=== PATIENT | female | born 1970 | race Caucasian/White ===

== ENCOUNTER → 2016-09-30 | Outpatient (CLI) | payer BC ==
--- NOTE | 2016-09-30 09:31 | MM ---
Reason for exam: screening (asymptomatic). Last mammogram was performed 1 year and 8 months ago. History: Family history of breast cancer in grandmother and breast cancer in aunt. Physical Findings: A clinical breast exam by your physician is recommended on an annual basis and results should be correlated with mammographic findings. MG Screening Mammo w CAD Bilateral CC and MLO view(s) were taken. Prior study comparison: February 04, 2015, bilateral MG screening mammo w CAD. January 29, 2011, bilateral digital screening mammo w/CAD. The breast tissue is extremely dense which could obscure a lesion on mammography. Finding: There are typically benign round calcifications in both breasts, greater in the right breast. There is no discrete abnormality. ASSESSMENT: Benign, BI-RAD 2 RECOMMENDATION: Routine screening mammogram of both breasts in 1 year.
== END | disposition home or self-care (01) ==
LOC: RADMAMWWP 07:55
PROVIDERS: ATTEND Obstetrics & Gynecology
DX: Z12.31 Encounter for screening mammogram for malignant neoplasm of breast (principal); Z80.3 Family history of malignant neoplasm of breast

== ENCOUNTER → 2016-11-20 | Outpatient (CLI) | payer BC ==
[2016-11-20 08:52] LABS: Basophils % (A) 0 %; CH 24.1; CHCM 29.7; Eosinophils # (A) 0.4 k/uL (0-0.7); Eosinophils % (A) 8 %; HCT 35.9 % (34.0-46.0); Hypochromasia Marked; Luc # (Auto) 0.12; Luc % (Auto) 2; Lymphocytes # (A) 0.9 k/uL (1.0-4.8); Lymphocytes % (A) 17 %; MCH 24.9 pg (25.0-35.0); MCHC 30.6 g/dL (31.0-37.0); MCV 81.2 fL (80.0-100.0); Mean Platelet Volume 7.4; Monocytes # (A) 0.3 k/uL (0-1.0); Monocytes % (A) 6 %; Neutrophils # (A) 3.4 k/uL (1.3-7.7); Neutrophils % (A) 66 %; RBC 4.42 m/uL (3.80-5.40); RDW 14.4 % (11.5-15.5); WBC 5.2 k/uL (3.8-10.6); WBC (Perox) 5.38
== END | disposition home or self-care (01) ==
LOC: LABWHC1 08:15
PROVIDERS: ATTEND Obstetrics & Gynecology
DX: Z01.812 Encounter for preprocedural laboratory examination (principal); N92.0 Excessive and frequent menstruation with regular cycle
CPT/HCPCS: 36415; 85025

== ENCOUNTER 2016-12-01 07:51 | Day surgery (SDC) | payer BC ==
[2016-11-24 11:10] VITALS: BMI 28.6
--- NOTE | 2016-11-26 14:37 | HP ---
This is a 46-year-old white female, gravid 2, para 2-0-0-2 who presents with a history of very heavy, long, crampy menses with large clots. Menses are occurring every 28 to 30 days but lasting 10 days in duration. Patient has had a tubal ligation. She has had an office endometrial biopsy and presents today for NovaSure ablation with hysteroscopy. She has been well counseled regarding risks, benefits and alternatives of this plane. She denies urinary or bowel symptoms. Review of systems is otherwise completely negative. She does have dysmenorrhea which is moderate, alleviated by Motrin and heat. Past medical history is significant for acid reflux disease and colitis. Past surgical history is C-sections x2, 1993, 1995 and knee surgery x2 in 1987 and 1988. CURRENT MEDICATIONS: 1. Prilosec daily. 2. Probiotic capsules daily. 3. Lialda 1.2 gm tablet with meals. ALLERGIES: None known. FAMILY HISTORY: Significant for breast cancer in maternal and paternal grandmothers. SOCIAL HISTORY: Patient works for the [employer], she has never been a smoker. She denies alcohol or drug use. Reproductive history is significant for sections x2 as noted above. On exam, this is a pleasant white female, 5 foot 5-1/2 inches, 170 pounds, BMI 27.86. Blood pressure 110/70, patient is afebrile and vital signs are otherwise stable. HEENT exam reveals no thyromegaly, no cervical lymphadenopathy. Chest is clear to auscultation in all chi anteriorly and posteriorly. Cardiac exam reveals regular rate and rhythm with no murmur, click or rub. Extremities reveal no edema, there are good peripheral pulses and normal range of motion in all extremities. Breasts are nontender, symmetric, no skin dimpling, nipple discharge, axillary adenopathy or discernible lesions are masses. Abdomen is soft, nontender with no rigidity or guarding, no masses, active bowel sounds. On external genitalia evaluation, they are normal in appearance for age. No inflammatory lesions or discharge. Cervix is multiparous, PAP smear is up to date. Uterus is immobile, small, smooth, nontender, anteverted, anteflexed. Adnexa are negative bilaterally. Rectal exam reveals good sphincter tone, FIT negative stool. IMPRESSION: Continued dysmenorrhea and menorrhagia, previous tubal ligation, patient requesting hysteroscopy and NovaSure endometrial ablation. PLAN: Again, we have reviewed the risks, benefits and alternatives of this procedure to include, but not be exclusive of bleeding, infection, perforation or damage to bowel, bladder, ureters, blood vessels or indeed any pelvic or abdominal organs. Second opinion has been offered and declined. All questions answered. ACOG literature as well as thermostat maker's literature on this procedure have been given to the patient and reviewed thoroughly. I believe she understands all risks including risks of aspiration, nerve damage or even from anesthesia. LUKASZ
[~2016-12-01 07:51] MED LIST: DEXAMETHASONE SOD PHOSPHATE 10 MG/ML 1 ML VIAL IV ONE; HYDROmorphone 1 MG/ML 1 ML SYRINGE IVP PRN; LACTATED RINGERS 1,000 ML IV SCH; MIDAZOLAM 2 MG/2 ML VIAL IV PRN; ONDANSETRON 4 MG/2 ML VIAL IVP ONE; Pre Op ABX Message 1 EACH MISC MISCELLANE ONE; SCOPOLAMINE 1.5MG/72HR PATCH TRANSDERM ONE
[2016-12-01 08:06] VITALS: RESP 16
[2016-12-01] MEDS ORDERED: LIDOCAINE 1% 20 ML VIAL (10MG/ML) FOR IV START INTRADERMA ONE (08:18)
[2016-12-01] MEDS ORDERED: LIDOCAINE 1% INJ 10MG/ML (20 ML MDV) ONE (08:46)
[2016-12-01] MEDS ORDERED: fentaNYL (PF) 50 MCG/ML 2 ML AMP ONE (08:46)
[2016-12-01] MEDS ORDERED: KETOROLAC 30 MG/ML 1 ML VIAL ONE (08:46)
[2016-12-01] MEDS ORDERED: MIDAZOLAM 2 MG/2 ML VIAL ONE (08:46)
[2016-12-01] MEDS ORDERED: PROPOFOL 10 MG/ML 20 ML VIAL IV ONE (08:46)
[2016-12-01] MEDS ORDERED: LACTATED RINGERS 1,000 ML IV ONE (09:11)
--- NOTE | 2016-12-01 09:14 | P.OP ---
Date of Procedure: 12/01/16 Preoperative Diagnosis: Menorrhagia Postoperative Diagnosis: Same Procedure(s) Performed: Hysteroscopy, NovaSure endometrial ablation. Implants: Anesthesia: GETA Surgeon: Christelle Valencia Ui Ux Engineer #1: Stated None Estimated Blood Loss (ml): 5 IV fluids (ml): 800 Urine output (ml): 200 Pathology: none sent Condition: stable Disposition: PACU Indications for Procedure: Operative Findings: Shaggy appearing endometrial cavity without obvious polyps fibroids or defects. Mentation under anesthesia is negative. Description of Procedure: Patient is brought to the operating suite where a general anesthetic is administered without difficulty. She's placed in the dorsal lithotomy position. No antibiotics are deemed necessary. Urine hCG is negative. The appropriate timeout is performed to assure proper patient and procedural identification. Examination under anesthesia is negative with a mobile small anteverted uterus, negative adnexa bilaterally. Perineal body is prepped and draped in usual sterile fashion. The appropriate timeout is performed to assure proper patient and procedural identification. Bladder is drained for 200 mL of clear yellow urine. Anterior lip of the cervix is grasped with a double-tooth tenaculum. Uterus sounds to a depth of 8-1/2 cm in the anteverted position, cervix is approximately 2 cm long. The cervix is then gently and systematically dilated with Hanks dilators. Hysteroscope was placed and fluid is infused. Cavity is distended and inspected. There is a fair amount of shaggy proliferative type appearing tissue, no obvious polyps or fibroids. Hysteroscope was removed. The NovaSure wand is then placed and seated properly. A length of 6.0 cm width of 3.2 cm is calibrated. The machine is properly enabled. For 87 seconds with a power the 106 W this procedure is carried out. When the machine shuts off, the wand is reduced and removed. Hysteroscope was once again placed. Cavity is distended. It appears to be uniformly blanched, consistent with thorough procedure. Hysteroscope was removed. All sponge needle and enhancement counts are correct. Anterior lip of the cervix is clean and dry. There is no active bleeding. Patient is brought back to recovery room in very good condition with stable vital signs during a pulse of 52, blood pressure 118/59, 100% O2 saturation. Toradol is given prior to leaving the operative suite. Patient will follow-up with me in the office in 2 weeks.
[2016-12-01 09:25] VITALS: TEMP 96.8
[2016-12-01 10:20] VITALS: PULSE 50
[2016-12-01 10:35] VITALS: BP 123/62
== END 2016-12-01 10:50 | disposition home or self-care (01) ==
LOC: OR 07:51
PROVIDERS: ATTEND Obstetrics & Gynecology
DX: N92.0 Excessive and frequent menstruation with regular cycle (principal); N94.6 Dysmenorrhea, unspecified; Z98.51 Tubal ligation status; K21.9 Gastro-esophageal reflux disease without esophagitis; K52.9 Noninfective gastroenteritis and colitis, unspecified; Z79.899 Other long term (current) drug therapy
CPT/HCPCS: 81025; 58563; J2250; J1100; J2405; J2001; J3010; J1885; J2704

== ENCOUNTER → 2017-11-03 | Outpatient (CLI) | payer BC ==
--- NOTE | 2017-11-04 10:14 | MM ---
Reason for exam: screening (asymptomatic). Last mammogram was performed 1 year and 1 month ago. History: Family history of breast cancer in grandmother and breast cancer in aunt. Physical Findings: A clinical breast exam by your physician is recommended on an annual basis and results should be correlated with mammographic findings. MG 3D Screening Mammo W/Cad Bilateral CC and MLO view(s) were taken. Prior study comparison: September 30, 2016, bilateral MG screening mammo w CAD. February 04, 2015, bilateral MG screening mammo w CAD. The breast tissue is heterogeneously dense. This may lower the sensitivity of mammography. No suspicious abnormality on the left breast. There is a new 4mm asymmetry with associated calcifications seen only on the MLO view at posterior depth 7.5-8cm from nipple just anterior to the pectoralis muscle. ASSESSMENT: Incomplete: need additional imaging evaluation, BI-RAD 0 RECOMMENDATION: Special view mammogram and ultrasound of the right breast. (superior breast ultrasound) [facility] will attempt to contact patient to return for supplemental views and ultrasound.
== END | disposition home or self-care (01) ==
LOC: RADMAMWWP 07:08
PROVIDERS: ATTEND Obstetrics & Gynecology
DX: Z12.31 Encounter for screening mammogram for malignant neoplasm of breast (principal); Z80.3 Family history of malignant neoplasm of breast
CPT/HCPCS: 77063; 77067

== ENCOUNTER → 2017-11-16 | Outpatient (CLI) | payer BC ==
--- NOTE | 2017-11-17 15:05 | MM ---
Reason for exam: additional evaluation requested from abnormal screening. Last mammogram was performed less than 1 month ago. History: Family history of breast cancer in maternal grandmother at age 72 and breast cancer in maternal aunt at age 62. Took hormonal contraceptives for 9 years beginning at age 13. Physical Findings: Nurse did not find any significant physical abnormalities on exam. MG 3D Work Up W/Cad RT CC with magnification, MLO with magnification, ML with magnification, and ML view(s) were taken of the right breast. Prior study comparison: November 03, 2017, bilateral MG 3d screening mammo w/cad. September 30, 2016, bilateral MG screening mammo w CAD. The breast tissue is heterogeneously dense. This may lower the sensitivity of mammography. The far posterior and superior asymmetric density disperses on additional views. In addition the calcifications here layer suggesting benign milk of calcium. These results were verbally communicated with the patient and result sheet given to the patient on 11/16/17. ASSESSMENT: Incomplete: need additional imaging evaluation, BI-RAD 0 RECOMMENDATION: Ultrasound of the right breast. (superior half)
--- NOTE | 2017-11-17 15:07 | USB ---
Reason for exam: additional evaluation requested from abnormal screening. History: Family history of breast cancer in maternal grandmother at age 72 and breast cancer in maternal aunt at age 62. Took hormonal contraceptives for 9 years beginning at age 13. US Breast Workup Limited RT Right limited breast ultrasound including focal area of concern, retroareolar and axilla demonstrates a 0.4 x 0.4 x 0.2cm oval, cystic lesion at 12 o'clock. This may correspond to the mammographic finding or may be incidental. 6 month follow up mammogram recommended. These results were verbally communicated with the patient and result sheet given to the patient on 11/16/17. ASSESSMENT: Probably benign, BI-RAD 3 RECOMMENDATION: Follow-up diagnostic mammogram of the right breast in 6 months.
== END | disposition home or self-care (01) ==
LOC: RADMAMWWP 07:18
PROVIDERS: ATTEND Obstetrics & Gynecology
DX: R92.8 Other abnormal and inconclusive findings on diagnostic imaging of breast (principal)
CPT/HCPCS: 77061; 77065

== ENCOUNTER → 2018-06-02 | Outpatient (CLI) | payer BC ==
--- NOTE | 2018-06-02 10:14 | MM ---
Reason for exam: follow-up at short interval from prior study. Last mammogram was performed 6 months ago. History: Family history of breast cancer in maternal grandmother at age 72 and breast cancer in maternal aunt at age 62. Took hormonal contraceptives for 9 years beginning at age 13. Physical Findings: Nurse did not find any significant physical abnormalities on exam. MG 3D Diag Mammo W/Cad RT CC and MLO view(s) were taken of the right breast. Prior study comparison: November 16, 2017, right breast MG 3d work up w/cad RT. November 03, 2017, bilateral MG 3d screening mammo w/cad. The breast tissue is heterogeneously dense. This may lower the sensitivity of mammography. There is no discrete abnormality. No significant new findings when compared with previous films. These results were verbally communicated with the patient and result sheet given to the patient on 06/02/18. ASSESSMENT: Negative, BI-RAD 1 RECOMMENDATION: Return to routine screening mammogram schedule for both breasts. Back on schedule.
== END ==
LOC: RADMAMWWP 08:06
PROVIDERS: ATTEND Obstetrics & Gynecology
DX: R92.8 Other abnormal and inconclusive findings on diagnostic imaging of breast (principal)
CPT/HCPCS: 77061; 77065

== ENCOUNTER 2018-09-19 12:38 | Emergency (ER) | payer BC, OTHER ==
[2018-09-19 13:11] VITALS: BP 136/67; PULSE 77; RESP 16; TEMP 98.1
--- NOTE | 2018-09-19 13:48 | ED ---
Upper Extremity HPI - General Chief Complaint: Extremity Injury, Upper Stated Complaint: ihs fall, rt hand injury Time Seen by Provider: 09/19/18 13:21 Source: patient, RN notes reviewed, old records reviewed Mode of arrival: ambulatory Limitations: no limitations - History of Present Illness Initial Comments: Patient is a 40-year-old female presents emergency department today for complaints of right hand injury after tripping and falling. Patient reports she has some tenderness over the proximal thumb and wrist. Patient states that she tripped over a cord while at work, and caught her weight on her arm. Patient denies any other symptoms including peripheral paresthesias. Patient states that she's had no previous hand or wrist injuries. She is right-handed. - Related Data Home Medications Medication Instructions Recorded Confirmed L.acidoph,Paracasei, B.lactis 1 each PO DAILY PRN 11/24/16 11/24/16 [Probiotic] Mesalamine [Lialda] 1.2 gm PO DAILY 11/24/16 11/24/16 Omeprazole 20 mg PO DAILY 11/24/16 11/24/16 Allergies Allergy/AdvReac Type Severity Reaction Status Date / Time No Known Allergies Allergy Verified 09/19/18 13:08 Review of Systems ROS Statement: Those systems with pertinent positive or pertinent negative responses have been documented in the HPI. ROS Other: All systems not noted in ROS Statement are negative. Past Medical History Additional Past Medical History / Comment(s): colitis History of Any Multi-Drug Resistant Organisms: None Reported Past Surgical History: Section Past Psychological History: No Psychological Hx Reported Smoking Status: Never smoker Past Alcohol Use History: None Reported Past Drug Use History: None Reported General Exam - General Exam Comments Initial Comments: This is a 48-year-old female. Alert and oriented 3. No significant distress. Limitations: no limitations Head exam: Present: atraumatic, normocephalic, normal inspection Eye exam: Present: normal appearance, PERRL, EOMI. Absent: scleral icterus, conjunctival injection, periorbital swelling ENT exam: Present: normal exam, mucous membranes moist Neck exam: Present: normal inspection. Absent: tenderness, meningismus, lymphadenopathy Respiratory exam: Present: normal lung sounds bilaterally. Absent: respiratory distress, wheezes, rales, rhonchi, stridor Cardiovascular Exam: Present: regular rate, normal rhythm, normal heart sounds. Absent: systolic murmur, diastolic murmur, rubs, gallop, clicks GI/Abdominal exam: Present: soft, normal bowel sounds. Absent: distended, tenderness, guarding, rebound, rigid Extremities exam: Present: normal inspection, full ROM, normal capillary refill. Absent: tenderness, pedal edema, joint swelling, calf tenderness Right Elbow exam: Present: normal inspection, full ROM Forearm Wrist exam: Present: normal inspection, full ROM, tenderness (Patient has tenderness over the right snuffbox.), swelling, tenderness over anatomical snuff box, pain with axial thumb loading Hand Wrist exam: Present: normal inspection, full ROM, tenderness (Lower proximal thumb.) Neuro motor exam: Present: wrist extension intact, thumb opposition intact, thumb IP flexion intact, thumb adduction intact, fingers 2-5 abduction intact Vascular: Present: normal capillary refill Back exam: Present: normal inspection Neurological exam: Present: alert, oriented X3, CN II-XII intact Psychiatric exam: Present: normal affect, normal mood Skin exam: Present: warm, dry, intact, normal color. Absent: rash Course Vital Signs 09/19/18 13:08 Temperature 98.1 F Pulse Rate 77 Respiratory 16 Rate Blood Pressure 136/67 O2 Sat by Pulse 97 Oximetry Procedures - Orthopedic Splinting/Casting Injury #1 Side: right Upper Extremity Injury Location: wrist Upper Extremity Immobilizer: thumb spica, Danny wrap, synthetic pre-padded splint Medical Decision Making - Medical Decision Making Patient's 40-year-old female presents emergency room today with right wrist and hand pain. Patient reports it started she tripped and fell at work and she fell on outstretched hand. Patient has some snuffbox tenderness, was placed in a thumb spica splint. I discussed Patient is follow-up with orthopedics for repeat x-rays and prednisone days as symptoms continue to persist. Some minor swelling noted. The Patient is neurovascularly intact. Discussed appropriate follow-up and Motrin Tylenol for pain. - Radiology Data Radiology results: report reviewed No fracture dislocation of the right hand or wrist. Disposition Clinical Impression: Right wrist sprain Disposition: HOME SELF-CARE Condition: Good Instructions (If sedation given, give patient instructions): Wrist Injury (ED) Additional Instructions: Recommended following up with orthopedics in 7-10 days for repeat x-rays. Remain in splint until that time. Patient should've close follow-up, and take Motrin Tylenol for pain. Ice the areas well and keep the wrist and hand up and elevated. Is patient prescribed a controlled substance at d/c from ED?: No Referrals: Gaston Winn MD [Primary Care Provider] - 1-2 days Antonio Isbell DO [Doctor of Osteopathic Medicine] - 1-2 days Time of Disposition: 14:12
--- NOTE | 2018-09-19 14:09 | XR ---
Right wrist and right hand HISTORY: Trauma and pain 3 views of the right hand and 4 views of the right wrist submitted Bone mineralization, joint spaces and alignment are maintained. Punctate focus of increased density p resent anterior to the distal aspect of the middle phalanx of the second digit of the right hand is a questionable clinical significance. Similar focus at the interphalangeal joint of the first digit is likely due to underlying arthropathy. IMPRESSION: No fracture or dislocation of the right hand or wrist.
== END 2018-09-19 14:37 | disposition home or self-care (01) ==
LOC: EC 12:38
DX: S63.501A Unspecified sprain of right wrist, initial encounter (principal); Z79.899 Other long term (current) drug therapy; W01.0XXA Fall on same level from slipping, tripping and stumbling without subsequent striking against object, initial encounter; Y92.69 Other specified industrial and construction area as the place of occurrence of the external cause; Y99.0 Civilian activity done for income or pay
CPT/HCPCS: 29125; 99284

== ENCOUNTER → 2019-01-11 | Outpatient (CLI) | payer BC ==
--- NOTE | 2019-01-11 08:57 | MM ---
Reason for exam: additional evaluation requested from prior study. Last mammogram was performed 7 months ago. History: Family history of breast cancer in maternal grandmother at age 72, breast cancer in maternal aunt at age 62, and breast cancer in cousin at age 48. Took hormonal contraceptives for 9 years beginning at age 13. Physical Findings: Nurse did not find any significant physical abnormalities on exam. MG 3D Diag Mammo W/Cad BUDDY Bilateral CC and MLO view(s) were taken. Prior study comparison: June 02, 2018, right breast MG 3d diag mammo w/cad RT. November 16, 2017, right breast MG 3d work up w/cad RT. November 03, 2017, bilateral MG 3d screening mammo w/cad. September 30, 2016, bilateral MG screening mammo w CAD. February 04, 2015, bilateral MG screening mammo w CAD. The breast tissue is heterogeneously dense. This may lower the sensitivity of mammography. No significant new findings when compared with previous films. These results were verbally communicated with the patient and result sheet given to the patient on 01/11/19. ASSESSMENT: Benign, BI-RAD 2 RECOMMENDATION: Routine screening mammogram of both breasts in 1 year.
== END | disposition home or self-care (01) ==
LOC: RADMAMWWP 08:07
PROVIDERS: ATTEND Obstetrics & Gynecology
DX: R92.8 Other abnormal and inconclusive findings on diagnostic imaging of breast (principal)
CPT/HCPCS: 77062; 77066

== ENCOUNTER → 2020-05-28 | Outpatient (CLI) | payer BC, OTHER ==
--- NOTE | 2020-05-28 13:17 | MM ---
Reason for exam: screening (asymptomatic). Last mammogram was performed 1 year and 4 months ago. History: Patient is postmenopausal. Family history of breast cancer in maternal grandmother at age 72, breast cancer in maternal aunt at age 62, and breast cancer in cousin at age 48. Took hormonal contraceptives for 9 years beginning at age 13. Physical Findings: A clinical breast exam by your physician is recommended on an annual basis and results should be correlated with mammographic findings. MG 3D Screening Mammo W/Cad Bilateral CC and MLO view(s) were taken. Prior study comparison: January 11, 2019, bilateral MG 3d diag mammo w/cad BUDDY. June 02, 2018, right breast MG 3d diag mammo w/cad RT. November 03, 2017, bilateral MG 3d screening mammo w/cad. September 30, 2016, bilateral MG screening mammo w CAD. The breast tissue is heterogeneously dense. This may lower the sensitivity of mammography. No significant changes when compared with prior studies. ASSESSMENT: Benign, BI-RAD 2 RECOMMENDATION: Routine screening mammogram of both breasts in 1 year.
== END | disposition home or self-care (01) ==
LOC: RADMAMWWP 07:13
PROVIDERS: ATTEND Obstetrics & Gynecology
DX: Z08 Encounter for follow-up examination after completed treatment for malignant neoplasm (principal); Z80.3 Family history of malignant neoplasm of breast
CPT/HCPCS: 77063; 77067

== ENCOUNTER → 2021-07-09 | Outpatient (CLI) | payer BC, OTHER ==
--- NOTE | 2021-07-11 11:56 | MM ---
Reason for exam: screening (asymptomatic). Last mammogram was performed 1 year and 1 month ago. History: Patient is postmenopausal. Family history of breast cancer in maternal grandmother at age 72, breast cancer in maternal aunt at age 62, and breast cancer in cousin at age 48. Took hormonal contraceptives for 9 years beginning at age 13. Physical Findings: A clinical breast exam by your physician is recommended on an annual basis and results should be correlated with mammographic findings. MG 3D Screening Mammo W/Cad Bilateral CC and MLO view(s) were taken. Prior study comparison: May 28, 2020, bilateral MG 3d screening mammo w/cad. January 11, 2019, bilateral MG 3d diag mammo w/cad BUDDY. The breast tissue is heterogeneously dense. This may lower the sensitivity of mammography. No significant changes when compared with prior studies. ASSESSMENT: Benign, BI-RAD 2 RECOMMENDATION: Routine screening mammogram of both breasts in 1 year.
== END | disposition home or self-care (01) ==
LOC: RADMAMWWP 08:19
PROVIDERS: ATTEND Obstetrics & Gynecology
DX: Z12.31 Encounter for screening mammogram for malignant neoplasm of breast (principal); Z80.3 Family history of malignant neoplasm of breast; Z78.0 Asymptomatic menopausal state
CPT/HCPCS: 77063; 77067

== ENCOUNTER → 2021-07-15 | Outpatient (CLI) | payer BC, OTHER ==
--- NOTE | 2021-07-15 15:55 | US ---
EXAMINATION TYPE: US kidneys/renal and bladder DATE OF EXAM: 07/15/2021 COMPARISON: US 2016 CLINICAL HISTORY: N28.9. Abn labs EXAM MEASUREMENTS: Right Kidney: 10.4 x 3.6 x 5.5 cm Left Kidney: 10.5 x 4.6 x 5.1 cm Right Kidney: No hydronephrosis or masses seen Left Kidney: No hydronephrosis or masses seen Bladder: wnl, sonolucent Bilateral Jets seen: Yes IMPRESSION: 1. Normal renal ultrasound
== END | disposition home or self-care (01) ==
LOC: RADUSWWP 14:47
PROVIDERS: ATTEND Family Medicine
DX: N28.9 Disorder of kidney and ureter, unspecified (principal); R79.9 Abnormal finding of blood chemistry, unspecified
CPT/HCPCS: 76770

== ENCOUNTER → 2022-01-06 | Outpatient (CLI) | payer BC, OTHER ==
[2022-01-06 10:25] LABS: HCT 37.8 % (37.2-46.3); HGB 12.1 g/dL (12.0-15.0); MCH 28.3 pg (27.0-32.0); MCV 88.5 fL (80.0-97.0); Mean Platelet Volume 9.5 fL (9.5-12.2); NRBC Per 100 WBC 0 /100 WBCS (0.0-0.0); Platelet Count 210 X 10*3/uL (140-440); RBC 4.27 X 10*6/uL (4.10-5.20); RDW 13.1 % (11.5-14.5); WBC 4.64 X 10*3/uL (4.50-10.00)
[2022-01-06 10:41] LABS: % Iron Saturation 15.73 (12.00-45.00); African American GFR (CKD) 67.3 (60.0-200.0); Albumin 4.3 g/dL (3.8-4.9); Albumin/Globulin Ratio 1.79 (1.60-3.17); Anion Gap 9.9 mmol/L (10.00-18.00); BUN/Creat Ratio 21.09 Ratio (12.00-20.00); Blood Urea Nitrogen 23.2 mg/dL (9.0-27.0); Calcium 8.9 mg/dL (8.7-10.3); Carbon Dioxide 26.1 mmol/L (20.0-27.5); Globulin 2.4 g/dL (1.6-3.3); Non-African American GFR(CKD) 58.1 (60.0-200.0); Phosphorus 3.8 mg/dL (2.4-5.1); Potassium 4.3 mmol/L (3.5-5.5); Total Bilirubin 0.3 mg/dL (0.30-1.20); Total Protein 6.7 g/dL (6.2-8.2); Uric Acid 5.9 mg/dL (2.9-7.7)
[2022-01-06 10:59] LABS: Ferritin 63.7 ng/mL (10.0-291.0)
[2022-01-06 18:08] LABS: Appearance,Urine Clear (Clear); Bilirubin,Urine Negative (Negative); Blood,Urine Negative (Negative); Color,Urine Yellow (Yellow); Ketones,Urine Negative (Negative); Nitrite,Urine Negative (Negative); PH, Urine 5.5 (5.0-8.0); Specific Gravity,Urine 1.017 (1.001-1.030); Urobilinogen,Urine 0.2 (0.2,1.0)
[2022-01-06 18:12] LABS: Bacteria,Urine None Seen /HPF (None Seen)
[2022-01-06 21:38] LABS: Microalbumin Creatinine Ratio <30 mg/g Creat (0-30); Urine Creatinine 78.7 mg/dL (28.0-217.0)
[2022-01-08 09:48] LABS: Free Kappa Lt Chain Qnt, Serum 1.98 mg/dL (0.33-1.94); Free Lambda Lt Chain Qnt, Seru 1.17 mg/dL (0.57-2.63)
== END | disposition home or self-care (01) ==
LOC: LABWHC1 07:15
PROVIDERS: ATTEND Internal Medicine
DX: E55.9 Vitamin D deficiency, unspecified (principal); N18.31 Chronic kidney disease, stage 3a; N39.0 Urinary tract infection, site not specified; N25.81 Secondary hyperparathyroidism of renal origin; M10.9 Gout, unspecified; D63.1 Anemia in chronic kidney disease; R80.9 Proteinuria, unspecified
CPT/HCPCS: 36415; 80053; 81001; 82043; 82306; 82570; 82728; 83540; 83550; 83735; 83883; 83970; 84100; 84443; 84550; 85027; 86334

== ENCOUNTER → 2022-08-19 | Outpatient (CLI) | payer BC, OTHER ==
--- NOTE | 2022-08-19 21:19 | MM ---
Reason for Exam: Screening (asymptomatic). Last mammogram was performed 1 year(s) and 2 month(s) ago. Patient History: Menarche at age 12. First Full-Term at age 23. Postmenopausal. Hormonal Contraceptives for 9 years from age 13 until age 22. Maternal grandmother had breast cancer, age 72. Maternal cousin had breast cancer, age 48. Maternal aunt had breast cancer, age 62. Risk Values: Suzanne 5 year model risk: 0.9%. NCI Lifetime model risk: 7.8%. Prior Study Comparison: 01/11/2019 Bilateral Diagnostic Mammogram, [facility]. 05/28/2020 Bilateral Screening Mammogram, [facility]. 07/09/2021 Bilateral Screening Mammogram, [facility]. Tissue Density: The breast tissue is heterogeneously dense. This may lower the sensitivity of mammography. Findings: Analyzed By CAD. Focal asymmetry at posterior depth right breast either 11:00 or 7:00 appears more defined and incompletely disperses on 3-D images. Further evaluation is recommended. Otherwise, there is no suspicious group of microcalcifications or new suspicious mass in either breast. The asymmetric density superior left MLO view middle to posterior depth is unchanged. Overall Assessment: Incomplete: need additional imaging evaluation, BI-RAD 0 Management: Special View Mammogram of the right breast. Diagnostic Breast Ultrasound of the right breast. Ultrasound to include the lateral half of the breast. [facility] will attempt to contact patient to return for supplemental views and ultrasound if indicated. Electronically signed and approved by: Christelle Culver M.D. Radiologist
== END | disposition home or self-care (01) ==
LOC: RADMAMWWP 06:54
PROVIDERS: ATTEND Obstetrics & Gynecology
DX: Z12.31 Encounter for screening mammogram for malignant neoplasm of breast (principal); Z78.0 Asymptomatic menopausal state; Z80.3 Family history of malignant neoplasm of breast
CPT/HCPCS: 77063; 77067

== ENCOUNTER → 2022-08-26 | Outpatient (CLI) | payer BC, OTHER ==
--- NOTE | 2022-08-26 08:38 | MM ---
Reason for Exam: Additional evaluation requested from abnormal screening. Last screening mammogram was performed less than 1 month ago. Patient History: Menarche at age 12. First Full-Term at age 23. Postmenopausal. Hormonal Contraceptives for 9 years from age 13 until age 22. Maternal grandmother had breast cancer, age 72. Maternal cousin had breast cancer, age 48. Maternal aunt had breast cancer, age 62. Risk Values: Suzanne 5 year model risk: 0.9%. NCI Lifetime model risk: 7.8%. Prior Study Comparison: 11/03/2017 Bilateral Screening Mammogram, [facility]. 05/28/2020 Bilateral Screening Mammogram, [facility]. 07/09/2021 Bilateral Screening Mammogram, [facility]. 08/19/2022 Bilateral MG 3D screening mammo w/cad, [facility]. Tissue Density: Right: The breast tissue is heterogeneously dense. This may lower the sensitivity of mammography. Findings: Analyzed By CAD. Focal asymmetry within the right breast does not persist with compression. No new suspicious mass or group of microcalcifications within the right breast. Overall Assessment: Negative, BI-RAD 1 Management: Screening Mammogram of both breasts in 1 year. A clinical breast exam by your physician is recommended on an annual basis and results should be correlated with mammographic findings. This exam should not preclude additional follow-up of suspicious palpable abnormalities. Results were given to the patient verbally at the time of exam. Electronically signed and approved by: Lyndon Becerra D.O.
== END | disposition home or self-care (01) ==
LOC: RADMAMWWP 08:08
PROVIDERS: ATTEND Obstetrics & Gynecology
DX: R92.8 Other abnormal and inconclusive findings on diagnostic imaging of breast (principal); Z78.0 Asymptomatic menopausal state; Z80.3 Family history of malignant neoplasm of breast
CPT/HCPCS: 77061; 77065

== ENCOUNTER → 2022-09-03 | Outpatient (CLI) | payer BC, OTHER ==
--- NOTE | 2022-09-04 08:48 | MR ---
EXAMINATION TYPE: MR knee LT wo con DATE OF EXAM: 09/03/2022 COMPARISON: Outside left knee x-ray August 25, 2022 HISTORY: Left knee pain TECHNIQUE: Multiplanar, multisequence images of the knee is performed without IV contrast. FINDINGS: MEDIAL MENISCUS: Anterior and posterior horns are intact without tear. LATERAL MENISCUS: Anterior and posterior horns are intact without tear. CRUCIATE LIGAMENTS: The anterior and posterior cruciate ligaments are intact and unremarkable. COLLATERAL LIGAMENTS: The medial collateral ligament and lateral collateral ligament complex are inta ct and unremarkable. EXTENSOR MECHANISM: Visualized quadriceps and patellar tendons are intact. EFFUSION: Small to moderate size suprapatellar joint effusion. POPLITEAL CYST: No popliteal/polanco cyst. TRICOMPARTMENT SPACES: Mild tricompartment joint space loss. No significant spurring. CARTILAGE: Tricompartmental articular cartilage fairly well-preserved. BONE MARROW SIGNAL: No focal abnormal marrow signal is appreciated. OTHER: No additional significant abnormality is appreciated. IMPRESSION: No meniscal or ligamentous tear is seen.
== END | disposition home or self-care (01) ==
LOC: RADMRIMAIN 21:00
PROVIDERS: ATTEND Orthopaedic Surgery
DX: M25.562 Pain in left knee (principal)

== ENCOUNTER → 2022-09-19 | Outpatient (CLI) | payer BC, OTHER ==
[2022-09-19 10:00] LABS: Basophils % (A) 0 %; Eosinophils # (A) 0.3 k/uL (0-0.7); Eosinophils % (A) 5 %; HCT 39.5 % (34.0-46.0); HGB 12.4 gm/dL (11.4-16.0); Lymphocytes % (A) 20 %; MCH 27.7 pg (25.0-35.0); MCHC 31.3 g/dL (31.0-37.0); MCV 88.3 fL (80.0-100.0); Mean Platelet Volume 7.6; Monocytes # (A) 0.3 k/uL (0-1.0); Monocytes % (A) 7 %; Neutrophils # (A) 3.1 k/uL (1.3-7.7); Neutrophils % (A) 66 %; Platelet Count 218 k/uL (150-450); RBC 4.48 m/uL (3.80-5.40); RDW 13.4 % (11.5-15.5); WBC 4.8 k/uL (3.8-10.6)
[2022-09-20 10:51] LABS: Albumin 4.5 d/dL; Albumin/Globulin Ratio 1.88 Ratio; Anion Gap 9.6 mmol/L; BUN/Creat Ratio 15.64 Ratio; Blood Urea Nitrogen 17.2 mg/dL; Calcium 9.5 mg/dL; Carbon Dioxide 28.4 mmol/L; Globulin 2.4 d/dL; Magnesium 2.2 mg/dL; Phosphorus 3.5 mg/dL; Potassium 4.1 mmol/L; Total Bilirubin 0.4 mg/dL; Total Protein 6.9 d/dL; Uric Acid 6.6 mg/dL
[2022-09-20 11:13] LABS: % Iron Saturation 16.44
[2022-09-21 10:15] LABS: African American GFR (CKD) 66.7; Non-African American GFR(CKD) 57.9
== END | disposition home or self-care (01) ==
LOC: LABWHC1 08:29
PROVIDERS: ATTEND Nurse Practitioner Acute Care
DX: N18.31 Chronic kidney disease, stage 3a (principal)
CPT/HCPCS: 36415; 80053; 82043; 82306; 82570; 82728; 83540; 83550; 83735; 83970; 84100; 84550; 85025

== ENCOUNTER → 2023-08-31 | Outpatient (CLI) | payer BC ==
--- NOTE | 2023-09-01 08:26 | MM ---
Reason for Exam: Screening (asymptomatic). Last screening mammogram was performed 12 month(s) ago. Patient History: Menarche at age 12. First Full-Term at age 23. Postmenopausal. Hormonal Contraceptives for 9 years from age 13 until age 22. Maternal grandmother had breast cancer, age 72. Maternal cousin had breast cancer, age 48. Maternal aunt had breast cancer, age 62. Risk Values: Suzanne 5 year model risk: 1.0%. NCI Lifetime model risk: 7.7%. Prior Study Comparison: 07/09/2021 Bilateral Screening Mammogram, [facility]. 08/19/2022 Bilateral MG 3D screening mammo w/cad, [facility]. 08/26/2022 Right MG 3D work up w/cad RT, [facility]. Tissue Density: The breasts are heterogeneously dense, which may obscure small masses. Findings: Analyzed By CAD. Right breast: There is no suspicious group of microcalcifications or new suspicious mass. Left breast: There is no suspicious group of microcalcifications or new suspicious mass. Overall Assessment: Negative, BI-RAD 1 Management: Screening Mammogram of both breasts in [address] [facility] will attempt to contact patient to return for supplemental views and ultrasound if indicated. Patient should continue monthly self-breast exams. A clinical breast exam by your physician is recommended on an annual basis. This exam should not preclude additional follow-up of suspicious palpable abnormalities. Note on Suzanne scores and lifetime risk: 1. A Suzanne score greater than 3% is considered moderate risk. If this is the case, consider specialist referral to assess eligibility for a risk reducing agent. 2. If overall lifetime risk for the development of breast cancer is 20% or higher, the patient may qualify for future screening with alternating mammogram and breast MRI. Electronically signed and approved by: Justyn Hardy DO
== END | disposition home or self-care (01) ==
LOC: RADMAMWWP 08:44
PROVIDERS: ATTEND Obstetrics & Gynecology Obstetrics
DX: Z12.31 Encounter for screening mammogram for malignant neoplasm of breast (principal); Z78.0 Asymptomatic menopausal state; Z80.3 Family history of malignant neoplasm of breast
CPT/HCPCS: 77063; 77067

== ENCOUNTER → 2024-04-10 | Outpatient (CLI) | payer BC ==
--- NOTE | 2024-04-10 15:27 | MR ---
EXAMINATION TYPE: MR shoulder LT wo con DATE OF EXAM: 04/10/2024 12:11 PM COMPARISON: Radiograph 04/04/2024 CLINICAL INDICATION: Female, 53 years old with history of M25.512 LEFT SHOULDER PAIN, left shoulder p ain and limited range of motion for 4 weeks TECHNIQUE: Multiplanar, multisequence imaging of the left shoulder is performed without contrast. FINDINGS: There is some intermediate signal at the junction of the intracapsular and extracapsular portion of t he long head biceps tendon. There is also mild to moderate fluid along the bicipital groove. The subscapularis tendon appears intact. Moderate degenerative change of the acromioclavicular joint with joint space narrowing, inferior spur ring, and capsular hypertrophy. Inferior spurring minimally abuts the underlying myotendinous junctio n of the supraspinatus. There is trace underlying effusion in the subacromial/subdeltoid bursa and suggestion of bursal sided fraying throughout the supraspinatus tendon. A partial-thickness bursal sided tear of the anterior t o mid supraspinous tendon is difficult to exclude measuring 1.2 cm AP and 1.0 cm long. Assessment is limited due to the presence of edema related to foci of calcification within the supraspinatus tendon . No rotator cuff muscle atrophy. The glenohumeral joint appears intact without significant effusion. No paralabral cyst or discrete la bral tear given on arthrographic technique. No Hill-Sachs deformity or os acromiale. Patchy red marrow hyperplasia which can be seen with anemia, obesity, smoking, and chronic disease. IMPRESSION: 1. Foci of calcification within the supraspinatus tendon. Associated soft tissue edema and trace burs al effusion. Findings compatible with calcific tendinitis. 2. Some limitation in assessment of the supraspinatus tendon due to the presence of the soft tissue e chey and calcification. There appears to be bursal sided fraying and a possible partial-thickness bur duarte sided tear measuring 1.2 x 1.0 cm of the anterior to mid fibers. Consider reassessment after reso lution of the calcific tendinitis. 3. Moderate AC joint OA and mild to moderate long head biceps tenosynovitis. [facility], , 04/10/2024 3:25 PM
== END | disposition home or self-care (01) ==
LOC: RADMRIMAIN 10:56
PROVIDERS: ATTEND Orthopaedic Surgery
DX: M19.012 Primary osteoarthritis, left shoulder (principal); M65.912 Unspecified synovitis and tenosynovitis, left shoulder; M25.412 Effusion, left shoulder

== ENCOUNTER → 2024-05-01 | Outpatient (CLI) | payer BC ==
[2024-05-01 16:49] LABS: Basophils # (A) 0.01 X 10*3/uL (0.00-0.10); Basophils % (A) 0.3 %; Eosinophils # (A) 0.23 X 10*3/uL (0.04-0.35); Eosinophils % (A) 7.6 %; HCT 42.8 % (37.2-46.3); HGB 13.4 g/dL (12.0-15.0); Lymphocytes # (A) 0.32 X 10*3/uL (0.90-5.00); Lymphocytes % (A) 10.5 %; MCH 27.8 pg (27.0-32.0); MCHC 31.3 g/dL (32.0-37.0); MCV 88.8 FL (80.0-97.0); Mean Platelet Volume 9.9 FL (9.5-12.2); Monocytes # (A) 0.27 X 10*3/uL (0.20-1.00); Monocytes % (A) 8.9 %; NRBC Per 100 WBC 0 X 10*3/uL (0.00-0.01); Neutrophils % (A) 72.4 %; Platelet Count 214 X 10*3/uL (140-440); RBC 4.82 X 10*6/uL (4.10-5.20); RDW 12.9 % (11.5-14.5); WBC 3.04 X 10*3/uL (4.50-10.00)
[2024-05-01 18:08] LABS: ALT 27 U/L (8-44); AST 18 U/L (13-35); Albumin 4.5 g/dL (3.8-4.9); Albumin/Globulin Ratio 2.05 Ratio (1.60-3.17); Alkaline Phosphatase 61 U/L (41-126); BUN/Creat Ratio 17.73 Ratio (12.00-20.00); Blood Urea Nitrogen 19.5 mg/dL (9.0-27.0); Calcium 9.2 mg/dL (8.7-10.3); Carbon Dioxide 27.7 mmol/L (21.6-31.8); Chloride 106 mmol/L (96-109); Globulin 2.2 g/dL (1.6-3.3); Glucose 93 mg/dL (70-110); Potassium 4.1 mmol/L (3.5-5.5); Sodium 144 mmol/L (135-145); Total Bilirubin 0.5 mg/dL (0.3-1.2); Total Protein 6.7 g/dL (6.2-8.2)
== END | disposition home or self-care (01) ==
LOC: LABPAT 09:00
PROVIDERS: ATTEND Orthopaedic Surgery
DX: Z01.818 Encounter for other preprocedural examination (principal)
CPT/HCPCS: 36415; 80053; 85025; 93005

== ENCOUNTER → 2024-07-21 | Outpatient (CLI) | payer BC ==
[2024-07-21 16:42] LABS: HCT 40.6 % (37.2-46.3); HGB 12.9 g/dL (12.0-15.0); MCH 28.8 pg (27.0-32.0); MCHC 31.8 g/dL (32.0-37.0); MCV 90.6 FL (80.0-97.0); Mean Platelet Volume 9.6 FL (9.5-12.2); NRBC Per 100 WBC 0 X 10*3/uL (0.00-0.01); Platelet Count 226 X 10*3/uL (140-440); RBC 4.48 X 10*6/uL (4.10-5.20); RDW 12.5 % (11.5-14.5); WBC 2.99 X 10*3/uL (4.50-10.00)
[2024-07-21 17:04] LABS: % Iron Saturation 29.15 (12.00-45.00); ALT 33 U/L (8-44); AST 25 U/L (13-35); Albumin 4.5 g/dL (3.8-4.9); Albumin/Globulin Ratio 1.96 Ratio (1.60-3.17); Alkaline Phosphatase 63 U/L (41-126); Blood Urea Nitrogen 10.2 mg/dL (9.0-27.0); Calcium 9.3 mg/dL (8.7-10.3); Carbon Dioxide 27.6 mmol/L (21.6-31.8); Chloride 105 mmol/L (96-109); Globulin 2.3 g/dL (1.6-3.3); Glucose 93 mg/dL (70-110); Iron 86 UG/DL (50-170); Phosphorus 3.8 mg/dL (2.4-5.1); Sodium 143 mmol/L (135-145); Total Bilirubin 0.5 mg/dL (0.3-1.2); Total Iron Binding Capacity 295 UG/DL (228-460); Total Protein 6.8 g/dL (6.2-8.2); Uric Acid 5.2 mg/dL (2.9-7.7)
== END | disposition home or self-care (01) ==
LOC: LABWHC1 08:38
PROVIDERS: ATTEND Internal Medicine
DX: N18.31 Chronic kidney disease, stage 3a (principal)
CPT/HCPCS: 36415; 80053; 82306; 82728; 83540; 83550; 83735; 83970; 84100; 84550; 85027

== ENCOUNTER → 2024-08-01 | Outpatient (CLI) | payer BC | END | disposition home or self-care (01) | LOC: LABWHC1 13:00 | PROVIDERS: ATTEND Nurse Practitioner Adult Health | DX: N18.31 Chronic kidney disease, stage 3a (principal); N39.0 Urinary tract infection, site not specified | CPT/HCPCS: 81001; 87086 ==

== ENCOUNTER → 2024-09-06 | Outpatient (CLI) | payer BC ==
[2024-08-01 18:44] LABS: Appearance,Urine Clear (Clear); Bilirubin,Urine Negative (Negative); Blood,Urine Negative (Negative); Color,Urine Yellow (Yellow); Ketones,Urine Negative (Negative); Nitrite,Urine Negative (Negative); Urobilinogen,Urine 0.2 E.U./DL
[2024-08-01 18:52] LABS: Bacteria,Urine None Seen (None Seen)
--- NOTE | 2024-09-06 14:40 | MM ---
Reason for Exam: Screening (asymptomatic). Last screening mammogram was performed 12 month(s) ago. Patient History: Menarche at age 12. First Full-Term at age 23. Postmenopausal. Hormonal Contraceptives for 9 years from age 13 until age 22. Maternal grandmother had breast cancer, age 72. Maternal cousin had breast cancer, age 48. Maternal aunt had breast cancer, age 62. Risk Values: Suzanne 5 year model risk: 1.0%. NCI Lifetime model risk: 7.5%. Prior Study Comparison: 08/19/2022 Bilateral MG 3D screening mammo w/cad, [facility]. 08/26/2022 Right MG 3D work up w/cad RT, [facility]. 08/31/2023 Bilateral MG 3D screening mammo w/cad, [facility]. Tissue Density: The breasts are heterogeneously dense, which may obscure small masses. Findings: Analyzed By CAD. Right breast: There is no suspicious group of microcalcifications or new suspicious mass. Left breast: There is no suspicious group of microcalcifications or new suspicious mass. Overall Assessment: Negative, BI-RAD 1 Management: Screening Mammogram of both breasts in [address] [facility] will attempt to contact patient to return for supplemental views and ultrasound if indicated. Patient should continue monthly self-breast exams. A clinical breast exam by your physician is recommended on an annual basis. This exam should not preclude additional follow-up of suspicious palpable abnormalities. Note on Suzanne scores and lifetime risk: 1. A Suzanne score greater than 3% is considered moderate risk. If this is the case, consider specialist referral to assess eligibility for a risk reducing agent. 2. If overall lifetime risk for the development of breast cancer is 20% or higher, the patient may qualify for future screening with alternating mammogram and breast MRI. [facility], , 09/06/2024 8:44 AM. Electronically signed and approved by: Justyn Hardy DO
== END | disposition home or self-care (01) ==
LOC: RADMAMWWP 08:32
PROVIDERS: ATTEND Family Medicine
DX: Z12.31 Encounter for screening mammogram for malignant neoplasm of breast (principal); R92.333 Mammographic heterogeneous density, bilateral breasts; Z78.0 Asymptomatic menopausal state; Z80.3 Family history of malignant neoplasm of breast; Z92.0 Personal history of contraception
CPT/HCPCS: 77063; 77067; 81001; 87086